=== PATIENT | male | born 1960 | race Caucasian/White ===

== ENCOUNTER 2016-11-06 07:36 | Day surgery (SDC) | payer OTHER, MEDICARE ==
[2016-11-02 11:18] LABS: HEMATOCRIT 52.8 % (37.9-51.0); HEMOGLOBIN 17.3 g/dL (13.5-17.0); HGB HCT DIFFERENCE -0.9; MEAN CORPUSCULAR HEMOGLOBIN 23.4 pg (27.0-33.4); MEAN CORPUSCULAR HGB CONC 32.9 g/dL (32.0-36.0); MEAN CORPUSCULAR VOLUME 71 fl (80-97); RED CELL DISTRIBUTION WIDTH 17.3 % (11.5-14.0); WHITE BLOOD COUNT 9.8 10^3/uL (4.0-10.5)
[2016-11-02 11:36] LABS: RED BLOOD COUNT 7.41 10^6/uL (4.35-5.55)
[2016-11-02 11:44] LABS: ANION GAP 16 (5-19); BLOOD UREA NITROGEN 20 mg/dL (7-20); CALCIUM 9.6 mg/dL (8.4-10.2); CARBON DIOXIDE 34 mmol/L (22-30); CHLORIDE 87 mmol/L (98-107); CREATININE RESULT 1.28 mg/dL (0.52-1.25); GLUCOSE 103 mg/dL (75-110); SODIUM 136.7 mmol/L (137-145)
--- NOTE | 2016-11-02 13:44 | EKG REPORT ---
SEVERITY:- ABNORMAL ECG - SINUS RHYTHM PROBABLE POSTERIOR INFARCT : Confirmed by: López Govea 02-Nov-2016 13:44:04
[~2016-11-06 07:36] MED LIST: BACITRACIN INJ 50,000 UNIT VIAL ONE; BUPIVACAINE HCL 0.25 % INJ/PF (2.5 MG/1 ML) 30 ML VIAL ONE; CEFAZOLIN 1 GM/D5W RTU 1 GM/50 ML RTUPB IV PRN; DEXTROSE 5%-1/2 NORMAL SALINE 1,000 ML IV PRN; LACTATED RINGERS 1000 ML IV PRN; LIDOCAINE 0.5% INJ-PF (5 MG/ML) 50 ML SDV ONE; LIDOCAINE 0.5% INJ-PF (5 MG/ML) 50 ML SDV SUBCUT PRN
[2016-11-06 08:30] LABS: POTASSIUM 3.6 mmol/L (3.6-5.0)
[2016-11-06] MEDS ORDERED: PREGABALIN 75 MG CAPSULE PO ONE (12:00)
[2016-11-06] MEDS ORDERED: MIDAZOLAM 2 MG/2 ML INJ ONE ×2 (12:07→12:49)
[2016-11-06] MEDS ORDERED: FENTANYL CITRATE INJ/PF 250 MCG/5 ML AMPULE ONE (12:07)
[2016-11-06] MEDS ORDERED: PROPOFOL INJ 200 MG/20 ML VIAL IV ONE (12:08)
[2016-11-06] MEDS ORDERED: ACETAMINOPHEN 100 ML IV ONE (12:08)
[2016-11-06] MEDS ORDERED: DEXMEDETOMIDINE INJ 80 MCG/20 ML VIAL IV ONE (12:08)
[2016-11-06] MEDS ORDERED: PROMETHAZINE HCL INJ 25 MG/1 ML VIAL IV PRN ×2 (13:08)
[2016-11-06] MEDS ORDERED: DIPHENHYDRAMINE HCL 50 MG/ML VIAL IV PRN (13:08)
[2016-11-06] MEDS ORDERED: MORPHINE SULFATE 10 MG/ML INJ IV PRN (13:08)
[2016-11-06] MEDS ORDERED: ONDANSETRON HCL INJ/PF 4 MG/2 ML SDV IV PRN (13:08)
[2016-11-06] MEDS ORDERED: MEPERIDINE HCL/PF INJ 25 MG/1 ML DISP.SYRIN IV PRN (13:08)
[2016-11-06] MEDS ORDERED: FENTANYL CITRATE INJ/PF 100 MCG/2 ML AMPUL IV PRN ×3 (13:08)
[2016-11-06] MEDS ORDERED: OXYCODONE-ACETAMINOPHEN 5-325 MG TABLET PO PRN ×2 (13:08)
--- NOTE | 2016-11-06 13:32 | PDOC DISCHARGE SUMMARY ---
Discharge Summary (SDC) - Discharge Final Diagnosis: Right axillary mass Date of Surgery: 11/06/16 Discharge Date: 11/06/16 Condition: Good Treatment or Instructions: #1 discharge patient after achieving ASU criteria. #2 diet as normal. #3 activities within moderation encouraged. #4 continue medications per medication reconciliation sheet. #5 Leave dressings on, clean and dry until office. #6 Follow-up in office by appointment in about 1 week. #7 additional medication for pain as prescribed. Discharge Diet: As Tolerated Respiratory Treatments at Home: Deep Breathing/Coughing Discharge Activity: Activity As Tolerated Report the Following to Your Physician Immediately: Shortness of Breath, Unusual Bleeding
--- NOTE | 2016-11-06 13:37 | Operative Report ---
Operative Report DATE OF SURGERY: 11/06/16 PREOPERATIVE DIAGNOSIS: #1 very large, symptomatic subcutaneous masses, right axilla, right subcutaneous supraclavicular area. #2 diabetes mellitus. #3 hypertension. POSTOPERATIVE DIAGNOSIS: #1 very large, symptomatic subcutaneous masses, right axilla, right subcutaneous supraclavicular area. Post excision of the right axillary mass. #2 diabetes mellitus. OPERATION: Excision of large right axillary mass. SURGEON: CARIDAD QUEZADA [employer]ING [employer]AC[employer] TECHNICIAN: none ANESTHESIA: LMAC TISSUE REMOVED OR ALTERED: Subcutaneous mass from right axilla, probably lipoma. Submitted for pathology. COMPLICATIONS: None ESTIMATED BLOOD LOSS: 10 mL. INTRAOPERATIVE FINDINGS: Of a large fatty, lobulated mass in the posterior axillary area. Measuring approximately 10 x 8 x 5 cm deep. Mass confined to the subcutaneous tissues and down to the fascia. Lobulated but no obvious invasion. Good extirpation accomplished. PROCEDURE: PROCEDURE: In this gentleman with large masses in the right axilla and another in the right supraclavicular area he finds he is very uncomfortable and wishes at least one removed. This is well indicated for improvement or resolution of symptoms and also for pathology on the mass. He understands the risks, benefits , expected outcome and alternatives and wishes to proceed. The right axillary area was prepared with [chlorhexidine] and draped out with sterile linen. After the"universal time-out", in which it was confirmed that the patient [did receive antibiotic], the procedure commenced. The patient was appropriately anesthetized. The lesion was sketched in marking ink, as well as the proposed incision. A dilute solution of local anesthesia was generously infiltrated in the skin and subcutaneous tissues above and around the mass. An incision was made transversely . This went through to the subcutaneous tissues. Dissection now proceeded in the subcutaneous tissue circumferentially around the mass and then finally posterior to it. In this way the entire mass was [removed and discarded ]. The wound was irrigated with [saline] . Meticulous hemostasis was secured in the wound. This was done using [cautery and also interrupted sutures of 3-0 PDS]. [The wound was irrigated once more with sterile saline solution]. The wound was now closed using deep interrupted sutures. These were of 3-0 PDS]. The skin was closed with a continuous subcuticular suture of 4-0 Monocryl, Steri -Strips over benzoin. A sterile dressing was applied and the procedure concluded.
[2016-11-06 15:32] VITALS: BP 115/71
[2016-11-06] MEDS ORDERED: LIDOCAINE 2% INJ-PF (20 MG/ML) 10 ML AMPUL ONE (19:08)
== END 2016-11-06 15:30 | disposition home or self-care (01) ==
LOC: OROUT 07:36
PROVIDERS: ATTEND Surgery
PROC: 0JBD0ZX Excision of Right Upper Arm Subcutaneous Tissue and Fascia, Open Approach, Diagnostic (ICD-10-PCS; principal; 2016-11-06 12:00)
DX: D17.21 Benign lipomatous neoplasm of skin and subcutaneous tissue of right arm (principal); R73.03 Prediabetes; E78.00 Pure hypercholesterolemia, unspecified; I10 Essential (primary) hypertension; K21.9 Gastro-esophageal reflux disease without esophagitis; Z87.891 Personal history of nicotine dependence; Z79.899 Other long term (current) drug therapy; Z79.84 Long term (current) use of oral hypoglycemic drugs; Z89.612 Acquired absence of left leg above knee
CPT/HCPCS: 93005; 36415 ×2; 82947; 84132; 85027; 80048; 88304 ×2; 71020; 93010; 11406; J2250; J3490 ×4; J0690; J3010; J2704; J0131; 400

== ENCOUNTER → 2018-09-16 | Outpatient (CLI) | payer MEDICARE, OTHER ==
[2018-09-16 11:45] LABS: ABSOLUTE EOSINOPHILS # (AUTO) 0.2 10^3/uL (0.0-0.6); ABSOLUTE LYMPHOCYTES (AUTO) 2.2 10^3/uL (0.5-4.7); ABSOLUTE MONOCYTES (AUTO) 0.7 10^3/uL (0.1-1.4); ABSOLUTE NEUT (AUTO) 5.4 10^3/uL (1.7-8.2); BASOPHILS % (AUTO) 0.3 % (0-2); EOSINOPHILS % (AUTO) 2.9 % (0-6); HEMATOCRIT 47.4 % (37.9-51.0); LYMPHOCYTES % (AUTO) 25.8 % (13-45); MEAN CORPUSCULAR HEMOGLOBIN 30.5 pg (27.0-33.4); MEAN CORPUSCULAR HGB CONC 35.8 g/dL (32.0-36.0); MEAN CORPUSCULAR VOLUME 85 fl (80-97); MONOCYTES % (AUTO) 8.4 % (3-13); PLATELET COUNT 189 10^3/uL (150-450); RED BLOOD COUNT 5.57 10^6/uL (4.35-5.55); SEGMENTED NEUTROPHILS % (AUTO) 62.6 % (42-78); TOTAL CELLS COUNTED % (AUTO) 100 %; WHITE BLOOD COUNT 8.6 10^3/uL (4.0-10.5)
[2018-09-16 11:58] LABS: INTERNATIONAL RATION (INR) 0.94; PARTIAL THROMBOPLASTIN TIME 28.1 SEC (23.5-35.8)
[2018-09-16 13:00] LABS: APPEARANCE,URINE CLEAR; BILIRUBIN,URINE NEGATIVE (NEGATIVE); COLOR,URINE YELLOW; GLUCOSE, URINE NEGATIVE (NEGATIVE); KETONES,URINE NEGATIVE (NEGATIVE); URINE SPECIFIC GRAVITY 1.009
[2018-09-16 13:01] LABS: ADD MANUAL MICROSCOPIC YES; BACTERIA,URINE TRACE /HPF; HYALINE CASTS, URINE 0-1 /LPF; LEUKOCYTE ESTERASE,URINE NEGATIVE (NEGATIVE); NITRITE,URINE NEGATIVE (NEGATIVE); PROTEIN,URINE NEGATIVE (NEGATIVE); UROBILINOGEN,URINE NEGATIVE mg/dL (<2.0)
== END ==
LOC: OD 10:33
PROVIDERS: ATTEND Pain Medicine Interventional Pain Medicine
DX: M54.17 Radiculopathy, lumbosacral region (principal); Z79.891 Long term (current) use of opiate analgesic
CPT/HCPCS: 36415; 81001; 85025; 85610; 85730

== ENCOUNTER 2018-11-11 08:01 | Day surgery (SDC) | payer MEDICARE, OTHER ==
[2018-11-05 09:37] LABS: HEMOGLOBIN 17.1 g/dL (13.5-17.0); MEAN CORPUSCULAR HEMOGLOBIN 29.9 pg (27.0-33.4); MEAN CORPUSCULAR VOLUME 86 fl (80-97); PLATELET COUNT 172 10^3/uL (150-450); RED BLOOD COUNT 5.73 10^6/uL (4.35-5.55); RED CELL DISTRIBUTION WIDTH 13.9 % (11.5-14.0)
[2018-11-05 09:42] LABS: INTERNATIONAL RATION (INR) 0.92; PARTIAL THROMBOPLASTIN TIME 29.5 SEC (23.5-35.8); PROTHROMBIN TIME 12.9 SEC (11.4-15.4)
--- NOTE | 2018-11-05 10:41 | RADIOLOGY REPORT (SQ) ---
EXAM DESCRIPTION: CHEST PA/LATERAL COMPLETED DATE/TIME: 11/05/2018 10:13 am REASON FOR STUDY: PRE-OP COMPARISON: None. EXAM PARAMETERS: NUMBER OF VIEWS: two views TECHNIQUE: Digital Frontal and Lateral radiographic views of the chest acquired. RADIATION DOSE: NA LIMITATIONS: none FINDINGS: LUNGS AND PLEURA: No opacities, masses or pneumothorax. No pleural effusion. MEDIASTINUM AND HILAR STRUCTURES: No masses or contour abnormalities. HEART AND VASCULAR STRUCTURES: Heart normal size. No evidence for failure. BONES: Chronic right lateral rib fractures. Partially visualized cervical fusion hardware. HARDWARE: None in the chest. OTHER: No other significant finding. IMPRESSION: No evidence of acute cardiopulmonary process. Chronic appearing right lateral rib fractures. TECHNICAL DOCUMENTATION: JOB ID: [id number] [employer]- All Rights Reserved Reading location - IP/workstation name: [email or web address]
[2018-11-05 12:00] LABS: APPEARANCE,URINE CLEAR; BILIRUBIN,URINE NEGATIVE (NEGATIVE); COLOR,URINE STRAW; GLUCOSE, URINE NEGATIVE (NEGATIVE); KETONES,URINE NEGATIVE (NEGATIVE); LEUKOCYTE ESTERASE,URINE TRACE (NEGATIVE); NITRITE,URINE NEGATIVE (NEGATIVE); PROTEIN,URINE NEGATIVE (NEGATIVE); URINE SPECIFIC GRAVITY 1.009; UROBILINOGEN,URINE NEGATIVE mg/dL (<2.0)
--- NOTE | 2018-11-05 14:38 | EKG REPORT ---
SEVERITY:- BORDERLINE ECG - SINUS RHYTHM NONSPECIFIC ST-T CHANGES- INFERIOR LEADS : Confirmed by: Adan Diego MD 05-Nov-2018 14:37:24
[~2018-11-11 08:01] MED LIST changes: -BACITRACIN INJ 50,000 UNIT VIAL ONE; -BUPIVACAINE HCL 0.25 % INJ/PF (2.5 MG/1 ML) 30 ML VIAL ONE; -DEXTROSE 5%-1/2 NORMAL SALINE 1,000 ML IV PRN; -LIDOCAINE 0.5% INJ-PF (5 MG/ML) 50 ML SDV ONE
[2018-11-11] MEDS ORDERED: CEFAZOLIN 1 GM/D5W RTU 1 GM/50 ML RTUPB IV ONE (08:06)
[2018-11-11] MEDS ORDERED: BUPIVACAINE HCL 0.25% /EPINEPHRINE INJ/PF 30 ML SDV ONE (08:55)
[2018-11-11] MEDS ORDERED: LIDOCAINE 1% INJ-PF (10 MG/ML) 30 ML SDV ONE (08:55)
[2018-11-11] MEDS ORDERED: MIDAZOLAM 2 MG/2 ML INJ ONE (08:58)
[2018-11-11] MEDS ORDERED: FENTANYL CITRATE INJ/PF 100 MCG/2 ML AMPUL ONE (08:58)
[2018-11-11] MEDS ORDERED: ONDANSETRON HCL INJ/PF 4 MG/2 ML SDV ONE (08:59)
[2018-11-11] MEDS ORDERED: PROPOFOL INJ 200 MG/20 ML VIAL IV ONE (08:59)
[2018-11-11] MEDS ORDERED: ALBUTEROL SULFATE 0.083% NEB 2.5 MG/3 ML AMPUL NEB ONE (09:09)
[2018-11-11] MEDS ORDERED: FAMOTIDINE INJ/PF 20 MG/2 ML SDV IV ONE (09:13)
[2018-11-11] MEDS ORDERED: METOCLOPRAMIDE HCL INJ/PF 10 MG/2 ML SDV ONE (09:13)
[2018-11-11] MEDS ORDERED: CITRIC ACID/SODIUM CITRATE ORAL SOLN 15 ML UDCUP ONE (09:16)
[2018-11-11] MEDS: SODIUM BICARBONATE 4.2% INJ (2.5 MEQ/5 ML) VIAL ONE ×2 (09:17→10:03)
[2018-11-11] MEDS ORDERED: MEPERIDINE HCL/PF INJ 25 MG/1 ML DISP.SYRIN IV PRN (10:04)
[2018-11-11] MEDS ORDERED: MORPHINE SULFATE 10 MG/ML INJ IV PRN (10:04)
[2018-11-11] MEDS ORDERED: DIPHENHYDRAMINE HCL 50 MG/ML VIAL IV PRN (10:04)
[2018-11-11] MEDS ORDERED: FENTANYL CITRATE INJ/PF 100 MCG/2 ML AMPUL IV PRN ×3 (10:04)
[2018-11-11] MEDS: FENTANYL CITRATE INJ/PF 100 MCG/2 ML AMPUL ONE ×2 (11:37→11:42)
[2018-11-11] MEDS ORDERED: CEFAZOLIN INJ 1 GM VIAL ONE (11:55)
--- NOTE | 2018-11-11 12:40 | RADIOLOGY REPORT (SQ) ---
EXAM DESCRIPTION: NO CHG FLUORO; THORACOLUMBAR SPINE AP/LAT COMPLETED DATE/TIME: 11/11/2018 11:27 am REASON FOR STUDY: SPINAL STIMULATOR PLCMT ASST WITH FLUORO IN OR COMPARISON: None. FLUOROSCOPY TIME: 3.7 minutes 7 Images saved to PACS LIMITATIONS: None. PROCEDURE: Neurostimulator electrode placement. FINDINGS: Images from fluoro document the placement of neurostimulator electrodes in the lower thora cic spine. IMPRESSION: Neurostimulator electrode placement. Refer to operative note for further information. COMMENT: PQRS 6045F: Fluoroscopy time of the procedure is documented in the report. TECHNICAL DOCUMENTATION: JOB ID: [id number] [employer]- All Rights Reserved Reading location - IP/workstation name: [email or web address]
--- NOTE | 2018-11-11 12:40 | RADIOLOGY REPORT (SQ) ---
EXAM DESCRIPTION: NO CHG FLUORO; THORACOLUMBAR SPINE AP/LAT COMPLETED DATE/TIME: 11/11/2018 11:27 am REASON FOR STUDY: SPINAL STIMULATOR PLCMT ASST WITH FLUORO IN OR COMPARISON: None. FLUOROSCOPY TIME: 3.7 minutes 7 Images saved to PACS LIMITATIONS: None. PROCEDURE: Neurostimulator electrode placement. FINDINGS: Images from fluoro document the placement of neurostimulator electrodes in the lower thora cic spine. IMPRESSION: Neurostimulator electrode placement. Refer to operative note for further information. COMMENT: PQRS 6045F: Fluoroscopy time of the procedure is documented in the report. TECHNICAL DOCUMENTATION: JOB ID: [id number] [facility] [employer]- All Rights Reserved Reading location - IP/workstation name: [email or web address]
[2018-11-11] MEDS ORDERED: ONDANSETRON HCL INJ/PF 4 MG/2 ML SDV IV PRN (12:52)
[2018-11-11] MEDS ORDERED: OXYCODONE HCL IR 5 MG TABLET PO PRN (12:53)
[2018-11-11] MEDS ORDERED: KETAMINE HCL INJ 500 MG/10 ML VIAL ONE (13:12)
[2018-11-11 13:24] VITALS: BP 105/64
--- NOTE | 2018-11-13 07:23 | OPERATIVE REPORT E ---
Operative Report NAME: OLIVA TAYLOR : 1960 AGE: 58Y DATE OF SURGERY: 11/11/2018 ROOM: PREOPERATIVE DIAGNOSES: 1. Lumbar radiculopathy. 2. Phantom limb syndrome. POSTOPERATIVE DIAGNOSES: 1. Lumbar radiculopathy. 2. Phantom limb syndrome. PROCEDURES PERFORMED: Insertion of implantable pulse generator and dual octrode spinal cord stimulator system from Dr. [employer]. SURGEON: HUBER SCHROEDER M.D. SPECIMENS REMOVED: None. FINDINGS: Dual octrodes placed from mid body T8 to the top of T10. ESTIMATED BLOOD LOSS: 5 mL. PREOPERATIVE ANTIBIOTICS: Ancef 1 g given prior to incision. COMPLICATIONS: None. IV FLUIDS: Balanced crystalloid solution 1 L perioperatively. ANESTHESIA: Local with monitored anesthesia care and sedation. OPERATIVE INDICATIONS: The patient is a 58 year-old male who has had ongoing history of lumbar radiculopathy as well as phantom limb syndrome status post left above-knee amputation. The patient previously underwent successful trial of percutaneous spinal cord stimulation and agreed to proceed with permanent implant. All risks and benefits of the procedure were discussed with the patient in detail including but not limited to bleeding, bruising, infection, injury to nerves, organs, loss of bowel or bladder function, paralysis, potentially even . The patient expressed understanding and agreed to proceed. OPERATIVE DETAIL: The patient was accompanied by Anesthesia Staff into the operative suite where he was placed in prone position. All pressure points were checked and padded in the standard lines and monitors were applied. The patient was prepped and draped in sterile fashion using chlorhexidine gluconate solution. Subsequently after appropriate drying time the patient was draped using Ioban drapes. Fluoroscopic C-arm was draped into the field sterilely as well. A timeout protocol was performed as per O and H standards. Using AP fluoroscopic guidance the T12-L1 interspace was visualized and marked. Planned skin incision site was marked and anesthetized with 1% buffered lidocaine using a 25 gauge needle. Additionally the area marked for planned implantable pulse generator insertion was anesthetized using 1% lidocaine. Deeper tissues were then infiltrated with 0.25% bupivacaine with 1:100,000 epinephrine. This was additionally performed over the implantable pulse generator pocket site. Incision was made using a 15 blade scalpel in the midline. Deep and electrocautery dissection were then performed to ensure adequate hemostasis. Once the prevertebral fascia was visualized and identified, a 25 gauge 3-1/2 inch spinal needle was advanced under AP and oblique fluoroscopic guidance to lamina of L1. This was infiltrated with 1% lidocaine. Subsequently a 16 gauge Tuohy provided by the [employer] kit was advanced under intermittent AP and lateral fluoroscopic guidance to the T12-L1 interspace and loss of resistance was obtained using normal saline. Once loss of resistance was obtained an octrode lead was advanced through the needle into the posterior epidural space. Lateral fluoroscopic guidance confirmed that the lead was posterior. This was performed with an additional needle in an opposite paramedian approach. Both leads were confirmed to be posterior on lateral fluoroscopic guidance. They were advanced easily to the mid body of T8, spanning T8 to T10 bilaterally. Again, posterior location was confirmed using lateral and fluoroscopic guidance. All impedances were checked by the [employer] corporate sales representative in the room and noted to be good at this time. A pursestring suture was placed with 0 Mersilene. An additional stay suture placed and planned for anchoring of the of the needle. The Tuohy needle was removed over both leads. The pursestring sutures were secured and affixed to the anchoring device provided by [employer]. No migration of the leads was appreciated at this time. Both leads were secured to the prevertebral fascia using anchoring device and 0 Mersilene. At this juncture attention was turned to the right flank where an incision was made and a pocket sufficiently sized for the implantable pulse generator was created. Adequate hemostasis was ensured using Bovie and blunt dissection. A tract was anesthetized for tunneling using a 3-1/2 inch needle from the midline to the buttock. Subsequently the tunneling device provided by the [employer] corporate sales representative was utilized to tunnel from the midline incision to the buttock pocket. The leads were inserted into the [employer] implantable pulse generator and secured using the hex wrench. All impedances were checked and noted to be excellent. Both incision sites were copiously irrigated with dilute Betadine solution. Closure then ensued of the buttock pocket, 3-0 Vicryl was used in an interrupted fashion. The skin was closed with Dermabond tape and glue. Attention was then turned to the midline incision. Notably strain relief loops were placed in the leads, which affixed with loose 3-0 Vicryl suture. Deep layer was closed with 2-0 Vicryl in interrupted vertical mattress fashion and then a superficial layer was closed with 3-0 Vicryl in interrupted fashion. The skin was then closed with jose. Both sites were infiltrated with 0.25% bupivacaine at conclusion of the surgery. Sites were dressed and cleansed. The patient was accompanied to postanesthesia care recovery unit in stable condition. He will follow up within 48 hours for postoperative check and will follow up with the [employer] corporate sales representative for programming. DICTATING PHYSICIAN: HUBER SCHROEDER M.D. [id number] PHY#: [id number] ID: [id number] JOB#: [id number] ACCT: [id number] cc:HUBER SCHROEDER M.D. >
== END 2018-11-11 13:27 | disposition home or self-care (01) ==
LOC: OROUT 08:01
PROVIDERS: ATTEND Pain Medicine Interventional Pain Medicine
DX: M54.17 Radiculopathy, lumbosacral region (principal); G54.7 Phantom limb syndrome without pain; I10 Essential (primary) hypertension; E11.9 Type 2 diabetes mellitus without complications; K21.9 Gastro-esophageal reflux disease without esophagitis; Z79.899 Other long term (current) drug therapy; Z87.891 Personal history of nicotine dependence; Z89.612 Acquired absence of left leg above knee; E66.9 Obesity, unspecified; Z68.35 Body mass index [BMI] 35.0-35.9, adult
CPT/HCPCS: 93005; 36415 ×2; 82962; 84132; 85027; 85610; 85730; 81001; 71046; 72080; 93010; 63685; 63650; C1778; J2250; J3490 ×5; J0690 ×2; J3010; J2405; J2704; 300; J2765; S0028

== ENCOUNTER → 2019-06-16 | Outpatient (CLI) | payer MEDICARE, OTHER ==
--- NOTE | 2019-06-16 12:12 | RADIOLOGY REPORT (SQ) ---
EXAM DESCRIPTION: ARTERIAL LOWER EXTREM UNILAT COMPLETED DATE/TIME: 06/16/2019 11:57 am REASON FOR STUDY: TYPE 2 DIABETES AND PVD E11.9 TYPE 2 DIABETES MELLITUS WITHOUT COMPLICATIONS COMPARISON: None. TECHNIQUE: Dynamic and static reece scale and color images acquired of the lower extremity arteries. Additional selected spectral images recorded. ABIs recorded. LIMITATIONS: None. FINDINGS: RIGHT LEG: ABIS: ABIs range from 0.92 in the dorsalis pedis artery to 1.08 in the posterior tibial artery. INFLOW ARTERIES: Normal, no obstruction evident. FEMORAL ARTERIES:Multiphasic waveforms. Normal, no velocity elevation to suggest focal stenosis. Norm al color Doppler evaluation. No aneurysm. POPLITEAL ARTERY:Multiphasic waveforms. Normal, no velocity elevation to suggest focal stenosis. Norm al color Doppler evaluation. No aneurysm. PATENT TIBIOPERONEAL TRUNK AND 3 VESSEL RUNOFF: Yes, normal vessels. TBI: Not performed. OTHER: Digit waveforms are symmetric. IMPRESSION: Normal waveforms throughout the right lower extremity. ABIs range from 0.92 to 1.08. N o focal stenosis. COMMENT: [facility] NORMAL: Greater than 1.0 MINIMAL DISEASE: 0.9 to 1.0 CLAUDICATION: 0.5 to 0.9 SEVERE ARTERIAL DISEASE: Less than 0.5 [facility] NORMAL: Greater than 1.0 (1.2 If Heavy Calcifications) NORMAL TO MILD ISCHEMIA: 0.8 to 1.0 MODERATE ISCHEMIA: 0.4 to 0.8 SEVERE ISCHEMIA: Less than 0.4 TECHNICAL DOCUMENTATION: JOB ID: [id number] [employer]- All Rights Reserved Reading location - IP/workstation name: [email or web address]
== END ==
LOC: SP 09:51
PROVIDERS: ATTEND Podiatrist Foot Surgery
DX: I73.9 Peripheral vascular disease, unspecified (principal); E11.9 Type 2 diabetes mellitus without complications
CPT/HCPCS: 93922; 93926

== ENCOUNTER → 2020-02-09 | Outpatient (CLI) | payer MEDICARE, OTHER ==
--- NOTE | 2020-02-09 12:48 | RADIOLOGY REPORT (SQ) ---
EXAM DESCRIPTION: CHEST PA/LATERAL IMAGES COMPLETED DATE/TIME: 02/09/2020 11:57 am REASON FOR STUDY: SHORTNESS OF BREATH COMPARISON: 11/05/2018 EXAM PARAMETERS: NUMBER OF VIEWS: two views TECHNIQUE: Digital Frontal and Lateral radiographic views of the chest acquired. RADIATION DOSE: NA LIMITATIONS: none FINDINGS: LUNGS AND PLEURA: No opacities, masses or pneumothorax. No pleural effusion. MEDIASTINUM AND HILAR STRUCTURES: No masses or contour abnormalities. HEART AND VASCULAR STRUCTURES: Heart normal size. No evidence for failure. BONES: Old right rib fractures. HARDWARE: Neurostimulator electrodes in the thoracic spine. OTHER: No other significant finding. IMPRESSION: NO SIGNIFICANT RADIOGRAPHIC FINDING IN THE CHEST. TECHNICAL DOCUMENTATION: JOB ID: [id number] [employer]- All Rights Reserved Reading location - IP/workstation name: [email or web address]
== END ==
LOC: RAD 11:10
PROVIDERS: ATTEND Internal Medicine
DX: R06.02 Shortness of breath (principal); I50.31 Acute diastolic (congestive) heart failure
CPT/HCPCS: 71046

== ENCOUNTER → 2020-04-18 | Outpatient (CLI) | payer MEDICARE, OTHER ==
[2020-04-18 09:45] LABS: INTERNATIONAL RATION (INR) 0.97; PROTHROMBIN TIME 13.1 SEC (11.4-15.4)
[2020-04-18 09:46] LABS: PARTIAL THROMBOPLASTIN TIME 26.9 SEC (23.5-35.8)
[2020-04-18 09:46] LABS: APPEARANCE,URINE CLEAR; BILIRUBIN,URINE NEGATIVE (NEGATIVE); COLOR,URINE STRAW; GLUCOSE, URINE NEGATIVE (NEGATIVE); KETONES,URINE NEGATIVE (NEGATIVE); LEUKOCYTE ESTERASE,URINE NEGATIVE (NEGATIVE); NITRITE,URINE NEGATIVE (NEGATIVE); PROTEIN,URINE NEGATIVE (NEGATIVE); URINE SPECIFIC GRAVITY 1.009; UROBILINOGEN,URINE NEGATIVE mg/dL (<2.0)
[2020-04-18 10:06] LABS: ABSOLUTE BASOPHILS # (AUTO) 0.1 10^3/uL (0.0-0.2); ABSOLUTE EOSINOPHILS # (AUTO) 0.3 10^3/uL (0.0-0.6); ABSOLUTE LYMPHOCYTES (AUTO) 2.3 10^3/uL (0.5-4.7); ABSOLUTE MONOCYTES (AUTO) 0.6 10^3/uL (0.1-1.4); ABSOLUTE NEUT (AUTO) 5.1 10^3/uL (1.7-8.2); BASOPHILS % (AUTO) 0.7 % (0-2); EOSINOPHILS % (AUTO) 3.1 % (0-6); HEMATOCRIT 45.6 % (37.9-51.0); HEMOGLOBIN 16.4 g/dL (13.5-17.0); MONOCYTES % (AUTO) 6.8 % (3-13); PLATELET COUNT 159 10^3/uL (150-450); RED CELL DISTRIBUTION WIDTH 13.3 % (11.5-14.0); SEGMENTED NEUTROPHILS % (AUTO) 61.4 % (42-78); TOTAL CELLS COUNTED % (AUTO) 100 %; WHITE BLOOD COUNT 8.3 10^3/uL (4.0-10.5)
[2020-04-18 10:12] LABS: MEAN CORPUSCULAR HEMOGLOBIN 30.9 pg (27.0-33.4); MEAN CORPUSCULAR HGB CONC 36.1 g/dL (32.0-36.0); MEAN CORPUSCULAR VOLUME 86 fl (80-97); RED BLOOD COUNT 5.32 10^6/uL (4.35-5.55)
== END ==
LOC: OD 08:50
PROVIDERS: ATTEND Pain Medicine Interventional Pain Medicine
DX: M54.16 Radiculopathy, lumbar region (principal)
CPT/HCPCS: 36415; 81001; 85025; 85610; 85730